=== PATIENT | female | born 1995 | race Caucasian/White ===

== ENCOUNTER 2016-11-22 12:19 | Emergency (ER) | payer MEDICAID ==
[~2016-11-22] VITALS: Ht 160 cm; Wt 72.0 kg
[~2016-11-22 12:19] MED LIST: ALBU8.5H3 INH; NITR-58 PO; NO MEDS; ULT50 PO
[2016-11-22 12:22] VITALS: Ht 160 cm; Wt 72.0 kg
[2016-11-22 15:04] LABS: URINE BLOOD (Dip) POC Negative (NEGATIVE)
[2016-11-22] MEDS ORDERED: ONDANSETRON (ODT) 4 MG TAB ODT STA (15:16)
[2016-11-22] MEDS ORDERED: KETOROLAC 30 MG INJ IM STA (15:16)
--- NOTE | 2016-11-22 15:30 | ERD ---
ER Documentation Chief Complaint Date/Time DATE: 11/22/16 TIME: 15:22 Chief Complaint Left flank pain x 10 days HPI 21 y/o female presents to ED for left flank pain for about 10 days. Pain was described as sharp, dull that radiates to left side of her abdomen. Pain rate is 6/10 at this time. Also reports urinary frequency and "I saw a blood in my urine." States that she is nauseated but no vomiting. Denies headache, loss of consciousness, dizziness, blurry vision, changes in vision, photophobia, facial pain, ear pain, throat pain, difficulty swallowing, neck pain, shoulder pain, chest pain, cough, hemoptysis, loss of appetite, nausea, vomiting, hematochezia, diarrhea, constipation, , the possibility of being , vaginal discharge, vaginal bleed, bladder and bowel incontinences, extremity weakness, extremity tenderness, numbness or tingling sensation, trauma, difficulty walking, recent travel, recent exposure to illness, recent antibiotic use in the last 3 months, fever, chills. Allergy: NKA PMH: Left kidney stones 2013, pyelonephritis 2013 Family medical history: Denies AO LMP: 11/07/2016 Medications: Denies Surgery: Lithotripsy 2013 Primary Social History: Works at [email or web address]. Occasionally drinks alcoholic beverages. Denies smoking, use of illegal drugs. ROS All systems reviewed and are negative except as per history of present illness. Medications Home Meds Active Scripts Tramadol HCl (Tramadol HCl) 50 Mg Tablet, 50 MG PO Q4 Y for PAIN, #20 TAB Prov:SHELLEY KEN PA-C 05/24/16 Nitrofurantoin Monohyd Macrocr* (Macrobid*) 100 Mg Capsr, 100 MG PO BID for 7 Days, CAP Prov:SHELLEY KEN PA-C 05/24/16 Reported Medications [No Meds ] No Conflict Check 02/22/14 Albuterol Sulfate* (Proair HFA*) 8.5 Gm Hfa.aer.ad, 2 PUFF INH Q4 01/20/12 Allergies Allergies: Coded Allergies: No Known Drug Allergy (Verified Allergy, Unknown, 05/24/16) PMhx/Soc History of Surgery: Yes (lithotripsy) Anesthesia Reaction: No Hx Neurological Disorder: No Hx Respiratory Disorders: Yes (Exercise induced asthma) Hx Cardiac Disorders: No Hx Psychiatric Problems: No Hx Miscellaneous Medical Probl: Yes (kidney stones) Hx Alcohol Use: No Hx Substance Use: No Hx Tobacco Use: No Smoking Status: Never smoker FmHx Denies Physical Exam Vitals Vital Signs Date Time Temp Pulse Resp B/P Pulse Ox O2 Delivery O2 Flow Rate FiO2 11/22/16 12:22 97.8 100 20 145/68 99 Physical Exam CONSTITUTIONAL: Well-appearing; well-nourished; in no apparent distress. HEAD: Normocephalic; atraumatic. EYES: Conjunctiva clear, sclera non-icteric, EOM intact. PERRL Ears: Hearing intact. EACs clear, TMs non-bulging, non-inflamed, translucent & mobile, ossicles normal appearance, No obstructions, no erythema, no discharges Nose: No obstructions. No polyps. No external lesions. Mucosa non-inflamed. No external lesions, septum and turbinates normal. No rhinorrhea. No discharges. Frontal sinus is non-tender to palpation. Maxillary sinus is non-tender to palpation. MOUTH: Moist mucous membranes, no lesion, no obstructions, no vesicles, no thrush, patent airway Throat: Uvula in midline. Right tonsil is +1 with no erythema, no exudate. Left tonsil is +1 with no erythema, no exudate. Tolerating secretions well. Good gag reflex. Patent airway. Neck: Supple, without lesions, bruits, or adenopathy. No mass. Thyroid non- enlarged and non-tender to palpation. CHEST: Symmetrical chest. Respirations even and not labored. No retractions noted. CARDIOVASCULAR: Normal S1, S2. RRR. No murmurs, gallops. RESPIRATORY: Normal chest excursion with respiration; breath sounds clear and equal bilaterally; no wheezes, rhonchi, or rales. Breathing even and unlabored. Speaking in clear, full, and complete sentences w/ ease. ABDOMEN: Normal bowel sounds normal. Soft, round, non-distended, non-guarding, no tenderness, no rebound, no organomegaly, no masses, no pulsating abdominal mass. No hernia. No peritoneal signs. : Left CVA tenderness. Pain to left flank area during palpation to left side of her abdomen. BACK: Symmetrical shoulder. Spine is midline without deformity, tenderness. No evidence of trauma or deformity. PELVIS: Stable pelvis. No evidence of trauma or deformity. MUSCULOSKELETAL: Normal gait and station. No misalignment, asymmetry, crepitation, defects, tenderness, masses, effusions, decreased range of motion, instability, atrophy or abnormal strength or tone in the head, neck, spine, ribs , pelvis or extremities. No calf tenderness. NEUROVASCULAR: Distal pulses are present. Pedal pulse are present, equal, and normal. Capillary refills are < 2 seconds. NEUROLOGIC: Alert and oriented x4. Speaks full and clear sentences. Cranial Nerves II-XII normal. Sensation to pain, touch, and proprioception normal. Grossly unremarkable. No neurologic deficits. Romberg test is negative. PSYCHOLOGICAL: The patients mood and manner are appropriate. No hallucinations , delusions. Not SI. Not HI. Has the capacity to decide for self SKIN: Normal for age and ethnicity; warm; dry; good turgor; no apparent lesions or exudates. No rashes, hives, discoloration. Intact. Result Diagram: 11/22/16 1528 11/22/16 1528 Results 24 hrs Laboratory Tests Test 11/22/16 15:04 11/22/16 15:28 Bedside Urine Blood Negative Bedside Urine Glucose (UA) Negative Bedside Urine Ketones (LAB) Negative Bedside Urine Leukocyte Esterase (L 1+ Bedside Urine Nitrite (LAB) Negative Bedside Urine Protein (LAB) Negative Bedside Urine pH (LAB) 7.0 Alanine Aminotransferase (ALT/SGPT) 21IU/L Albumin 4.3g/dl Albumin/Globulin Ratio 1.13 Alkaline Phosphatase 66IU/L Anion Gap 16 Aspartate Amino Transf (AST/SGOT) 16IU/L Basophils # 0.010^3/ul Basophils % 0.4% Blood Morphology Comment Blood Urea Nitrogen 7mg/dl Calcium Level 9.6mg/dl Carbon Dioxide Level 27mmol/L Chloride Level 102mmol/L Creatinine 0.54mg/dl Direct Bilirubin 0.00mg/dl Eosinophils # 0.110^3/ul Eosinophils % 1.2% Globulin 3.80g/dl Glucose Level 85mg/dl Hematocrit 36.6% Hemoglobin 12.1g/dl Indirect Bilirubin 0.2mg/dl Lipase 44U/L Lymphocytes # 1.810^3/ul Lymphocytes % 16.2% Mean Corpuscular Hemoglobin 28.9pg Mean Corpuscular Hemoglobin Concent 33.1g/dl Mean Corpuscular Volume 87.3fl Mean Platelet Volume 7.8fl Monocytes # 0.710^3/ul Monocytes % 6.8% Neutrophils # 8.210^3/ul Neutrophils % 75.4% Nucleated Red Blood Cells # 0.010^3/ul Nucleated Red Blood Cells % 0.0/100WBC Platelet Count 66929^3/UL Potassium Level 4.4mmol/L Red Blood Count 4.2010^6/ul Red Cell Distribution Width 14.1% Sodium Level 141mmol/L Total Bilirubin 0.2mg/dl Total Protein 8.1g/dl Urine Bacteria MODERATE Urine Bilirubin NEGATIVE Urine Clarity CLOUDY Urine Color LT. YELLOW Urine Glucose NEGATIVE% Urine Hemoglobin NEGATIVE Urine Ketones NEGATIVE Urine Leukocyte Esterase 1+ Urine Microscopic RBC NONE SEEN/HPF Urine Microscopic WBC 10-25/HPF Urine Nitrite NEGATIVE Urine Specific Manquin <=1.005 Urine Squamous Epithelial Cells MANY Urine Total Protein NEGATIVE Urine Urobilinogen 0.2 E.U./dL Urine pH 6.5 White Blood Count 10.810^3/ul Current Medications Medications (Trade) Dose Ordered Sig/Jozef Route PRN Reason Start Time Stop Time Status Last Admin Dose Admin Ondansetron HCl (Zofran Odt) 4 mg ONCE STAT ODT 11/22/16 15:16 11/22/16 15:21 DC 11/22/16 15:27 Ketorolac Tromethamine (Toradol) 30 mg ONCE STAT IM 11/22/16 15:16 11/22/16 15:21 DC 11/22/16 15:27 Procedures/MDM Examination: Unremarkable examination except left flank pain. Disease process, medical treatment was explained to the patient and family member. They verbalized understanding and agreed with the diagnostic tests, medical treatment, and follow-up care. Radiology: IMPRESSION: 1. No right hydronephrosis. 2. Mild left hydronephrosis. No obstructing lesion visualized. Result was confirmed with Dr. Huggins 3. Otherwise normal renal ultrasound. 4. No other change from 05/24/2016. Blood works unremarkable. POC urine : Negative Urinalysis: Leukocyte esterase is 1+, urine microscopic WBCs 10-25, squamous epithelial cells many, urine bacteria is moderate. Treatment: Re-evaluation: Denies back pain, abdominal pain. No nausea and vomiting. Tolerating p.o.'s. Consultation: None Differential diagnosis: Kidney stones versus pyelonephritis versus back pain versus UTI Medical decision makin21 y/o female presents to ED for left flank pain for about 10 days. Pain was described as sharp, dull that radiates to left side of her abdomen. Pain rate is 6/10 at this time. Also reports urinary frequency and "I saw a blood in my urine." States that she is nauseated but no vomiting. Medications prescribed are the following: Macrobid, Motrin Patient and family member are made aware of the side effects and adverse reactions of the medications prescribed. Instructed on when to seek emergent and medical attention in case allergic/anaphylactic reactions or severe side effects and or adverse reactions to medications. Patient and family member verbalized understanding. Final diagnosis is urolithiasis Patient instructed Instructed to follow-up with his PCP in 24-48 hours. Instructed to Call 911 for chest pain, shortness of breath. Advised to come back here in ED as soon as possible for severity of symptoms which includes but not limited to: any new symptoms; shortness of breath/difficulty of breathing; cardiovascular changes; severe gastrointestinal symptoms; signs and symptoms of bleeding and or infection; signs of compartment syndrome/neurovascular changes; neurological changes/deficits. Patient and family member verbalized understanding. Upon discharge, patient is alert and oriented x 4, speaks full and clear sentences, denies pain, has no neurological deficits, has no neurovascular deficits, difficulty of breathing. Breathing even and unlabored. Lung sounds are clear to auscultation. Denies abdominal pain, back pain. No nausea and vomiting. Tolerating POs. Not in distress. Appears comfortable. Ambulatory with steady gait. Appears satisfied with care provided here in ED. Departure Condition: Good Additional Instructions: Instructed to follow-up with his PCP in 24-48 hours. Instructed to Call 911 for chest pain, shortness of breath. Advised to come back here in ED as soon as possible for severity of symptoms which includes but not limited to: any new symptoms; shortness of breath/difficulty of breathing; cardiovascular changes; severe gastrointestinal symptoms; signs and symptoms of bleeding and or infection; signs of compartment syndrome/neurovascular changes; neurological changes/deficits. Patient and family member verbalized understanding. MILAN SALAS Nov 22, 2016 15:30
[2016-11-22 15:38] LABS: ADD UMIC YES; BASOPHILS % 0.4 % (0.0-2.0); EOSINOPHILS # 0.1 10^3/ul (0.0-0.5); EOSINOPHILS % 1.2 % (0.0-7.0); HEMATOCRIT 36.6 % (37.0-47.0); HEMOGLOBIN 12.1 g/dl (12.0-16.0); LYMPHOCYTES # 1.8 10^3/ul (0.8-2.9); LYMPHOCYTES % 16.2 % (15.0-51.0); MEAN CORPUSCULAR HEMOGLOBIN 28.9 pg (29.0-33.0); MEAN CORPUSCULAR HGB CONC 33.1 g/dl (32.0-37.0); MEAN CORPUSCULAR VOLUME 87.3 fl (82.0-101.0); MEAN PLATELET VOLUME 7.8 fl (7.4-10.4); MONOCYTE # 0.7 10^3/ul (0.3-0.9); MONOCYTES % 6.8 % (0.0-11.0); NEUTROPHIL # 8.2 10^3/ul (1.6-7.5); NEUTROPHILS % 75.4 % (39.0-77.0); PLATELET COUNT 292 10^3/UL (140-440); RED CELL DISTRIBUTION WIDTH 14.1 % (11.5-14.5); UNCORRECTED WBC 10.8 10^3/ul (4.8-10.8); URINE BILIRUBIN (Dip) NEGATIVE (NEGATIVE); URINE BLOOD (Dip) NEGATIVE (NEGATIVE); URINE COLOR LT. YELLOW (YELLOW); URINE GLUCOSE (Dip) NEGATIVE (NEGATIVE); URINE KETONES (Dip) NEGATIVE (NEGATIVE); URINE LEUKOCYTE ESTERASE (Dip) 1+ (NEGATIVE); URINE NITRITE (Dip) NEGATIVE (NEGATIVE); URINE TOTAL PROTEIN (Dip) NEGATIVE (NEGATIVE); URINE UROBILINOGEN (Dip) 0.2 E.U./dL (0.1-1.0); WHITE BLOOD COUNT 10.8 10^3/ul (4.8-10.8)
[2016-11-22 15:39] LABS: CONDITION 1
[2016-11-22 15:51] LABS: ALBUMIN 4.3 g/dl (3.3-4.9)
[2016-11-22 15:52] LABS: POTASSIUM 4.4 mmol/L (3.5-5.1)
[2016-11-22 15:54] LABS: BILIRUBIN,INDIRECT 0.2 mg/dl (0-1.1); BILIRUBIN,TOTAL 0.2 mg/dl (0.2-1.3); CREATININE 0.54 mg/dl (0.44-1.00)
[2016-11-22 15:55] LABS: ALBUMIN/GLOBULIN RATIO 1.13; BACTERIA,URINE MODERATE; CALCIUM 9.6 mg/dl (8.4-10.2); SQUAMOUS EPITHELIAL CELL,UR MANY; TOTAL PROTEIN 8.1 g/dl (6.1-8.1); URINE RBCS NONE SEEN /HPF (0)
--- NOTE | 2016-11-22 16:06 | RADRPT ---
PROCEDURE: Renal US. CLINICAL INDICATION: Flank pain. History of renal calculi 2 years ago. TECHNIQUE: Multiple sonographic images of the kidneys and urinary bladder were obtained. The imag es were reviewed on a PACS workstation. COMPARISON: 05/24/2016. FINDINGS: The right kidney measures 9.6 cm. The left kidney measures 10.5 cm. There is no renal mass. There is no right hydronephrosis. There is mild right hydronephrosis with no obstructing lesion vis ualized. There is no renal calculus. Renal parenchymal thickness and echogenicity is normal bilaterally. The perirenal regions are normal with no fluid collection or mass. The urinary bladder is unremarkable. IMPRESSION: 1. No right hydronephrosis. 2. Mild right hydronephrosis. No obstructing lesion visualized. 3. Otherwise normal renal ultrasound. 4. No other change from 05/24/2016. RPTAT: QQ .Jerry Huggins MD, MD Date Time Electronically viewed and signed by .Jerry Huggins MD, on 11/22/2016 16:05 .R/
[2016-11-22] MEDS ORDERED: IBUP-1542 PO (16:43)
[2016-11-22] MEDS ORDERED: NITR-58 PO (16:43)
[2016-11-22 16:52] VITALS: BP 115/77; PULSE 82; RESP 17; TEMP 97.8
== END 2016-11-22 16:57 | disposition home or self-care (01) ==
LOC: FTE 12:19
DX: N20.9 Urinary calculus, unspecified (principal)
CPT/HCPCS: 76775; 80053; 81001; 83690; 85025; J1885; Z7610; 81003; 96372